=== PATIENT | female | born 1960 | race Caucasian/White ===

== ENCOUNTER → 2017-04-14 | Day surgery (SDC) | payer MEDICARE, BC ==
[~2017-04-14] MED LIST: ACCOLATE20 MG PO; ALBUTEROL17 GM INH; ALLEGRA-D1 TAB.SR1 PO; ALPRAZOLAM PO; ANTIVERT PO; ATROPINE; CELEBREX PO; DIPHENOXYLATE; DURAGESIC TOP; DURAGESIC1 EAC1; ENTOCORT EC3 MG PO; FLEXERIL10 MG PO; FOSAMAX PO; HYDROCODON-ACE1 EAC7 PO; IMITREX PO; LANSOPRAZOLE30 M3 PO; LIPITOR20 MG PO; LYRICA PO; PROTONIX PO; SAVELLA50 MG PO; SKELAXIN PO; TOPAMAX PO; TOPROL XL 50 MG50 MG PO; VICODIN 5/500 T1 TAB PO; VITAMIN D 4001 UDTAB PO; VITAMIN D1000 UNI2 PO; [UNRECOGNIZED DRUG - OTHER]
--- NOTE | ~2017-04-14 | OR ---
Unit #: [id number] #: [id number] Patient: JOANN CASILLAS [id number] [address] [place], [place] [address] [id number] MR#: [id number] NAME: JOANN CASILLAS ROOM: Date of Procedure: 04/14/2017 Admission Date: 04/14/2017 Surgeon: Kody Corona M.D. : 1960 Attending Physician: Kody Corona M.D. Primary Care Physician: Generic Doctor Not In System OPERATIVE REPORT PREOPERATIVE DIAGNOSES Postlumbar fusion, back pain, sacroiliac joint dysfunction. POSTOPERATIVE DIAGNOSES Postlumbar fusion, back pain, sacroiliac joint dysfunction. PROCEDURE PERFORMED Left S sacroiliac joint injection with fluoroscopic guidance and intravenous sedation. INDICATIONS FOR PROCEDURE The patient is a 56-year-old female, who had some worsening left-sided back, lower extremity pain, and swelling, status post L5-S1 fusion. She returns to her surgeon and suggested trial of diagnostic and therapeutic, hopefully left SI injection based on history, pathology, and symptomatology. Risks and benefits of all which have been reviewed. DESCRIPTION OF PROCEDURE The patient was placed in a prone position. Standard monitors were applied. 2 mg of Versed were given for sedation and anxiolysis, which were adequate. Vital signs remained stable. Sterile prep and drape then of the lumbosacral area was performed. The skin overlying the left sacroiliac joint was localized with 1% lidocaine. A 22-gauge Quincke point spinal needle was then advanced with fluoroscopic guidance to bring the needle tip to within the edge of the left sacroiliac joint. The patient did not complain of pain or paresthesia during needle advancement. After confirming proper positioning with the use of fluoroscopy and radiographic contrast, a dose of 80 mg of Depo-Medrol and 5 mL of 0.25% bupivacaine were deposited. The needle was flushed and removed. The patient tolerated the procedure otherwise well and was discharged to recovery room in stable condition. Dictated by... Nam RodriguezP/ramy TD: 04/14/2017 17:52 JOB #: [id number] Unit #: [id number] #: [id number] Patient: JOANN CASILLAS OPERATIVE REPORT Page 1 of 1 X Kody Corona MD X PROCEDURE OPERATIVE NOTE
== END | disposition home or self-care (01) ==
LOC: CCSC 09:51
DX: M53.3 Sacrococcygeal disorders, not elsewhere classified (principal); Z98.1 Arthrodesis status; Z88.1 Allergy status to other antibiotic agents; Z88.5 Allergy status to narcotic agent; Z79.899 Other long term (current) drug therapy
CPT/HCPCS: J1040; J2250